=== PATIENT | female | born 1940 | race Asian ===

== ENCOUNTER → 2016-12-05 | Outpatient (CLI) | payer MEDICARE ==
[~2016-12-05] MED LIST: ASPIR-LOW81 MG PO; ASPIRIN E.C. 8181 MG PO; CALTRATE-600 W600 MG PO; EFFEXOR 75M75 MG/TAB PO; FORTAMET500 MG PO; GLYBURIDE MICRON3 MG PO; HCTZ 25MG25 MG PO; LEVOTHYROXINE PO; LEXAPRO 10MG10 MG PO; LISINOPRIL20 MG PO; NORVASC2.5 MG PO; OMEPRAZOLE20 M2 PO; PRILOSEC PO; VENLAFAXINE75 MG PO
== END ==
LOC: MC.RAD 15:46
DX: Z12.31 Encounter for screening mammogram for malignant neoplasm of breast (principal)

== ENCOUNTER 2017-05-29 08:46 | Day surgery (SDC) | payer MEDICARE ==
[~2017-05-29] VITALS: Ht 154.9 cm; Wt 80.2 kg
[~2017-05-29 08:46] MED LIST changes: +EFFEXOR-XR150 MG PO; +NORVASC 5MG5 MG/TAB PO; -NORVASC2.5 MG PO; -VENLAFAXINE75 MG PO
[2017-05-29] MEDS ORDERED: GLUCOTROL XL2.5 MG PO (09:20)
[2017-05-29] MEDS ORDERED: LIPITOR 10MG10 MG PO (09:20)
[2017-05-29] MEDS ORDERED: TAPAZOLE5 MG PO (09:21)
[2017-05-29] MEDS ORDERED: COZAAR 50MG50 MG/TAB PO (09:22)
[2017-05-29] MEDS ORDERED: JANUVIA25 MG PO (09:23)
[2017-05-29] MEDS ORDERED: VITAMIN D32000 I1 PO (09:23)
[2017-05-29] MEDS ORDERED: GLUCOSAMINE 1000 PO (09:24)
[2017-05-29] MEDS ORDERED: MAGNESIUM500 MG PO (09:25)
[2017-05-29] MEDS ORDERED: MASON NATURAL1200 MG PO (09:26)
[2017-05-29] MEDS ORDERED: FLAX OIL1000 MG PO (09:26)
[2017-05-29] MEDS ORDERED: CALCIUM 600-D 61 TAB PO (09:28)
[2017-05-29 09:52] VITALS: BP 115/71; PULSE 64; TEMP 98
[2017-05-29 11:30] VITALS: BP 118/72; PULSE 75; TEMP 97.7
[2017-05-29 11:45] VITALS: BP 100/61; PULSE 62
[2017-05-29 12:00] VITALS: BP 99/57; PULSE 68
== END 2017-05-29 12:35 | disposition home or self-care (01) ==
LOC: SDCO 08:46
DX: K31.7 Polyp of stomach and duodenum (principal); K30 Functional dyspepsia; K22.2 Esophageal obstruction; K44.9 Diaphragmatic hernia without obstruction or gangrene; K31.84 Gastroparesis; K29.30 Chronic superficial gastritis without bleeding; I10 Essential (primary) hypertension; E03.9 Hypothyroidism, unspecified; Z90.710 Acquired absence of both cervix and uterus; Z79.84 Long term (current) use of oral hypoglycemic drugs
CPT/HCPCS: OP; C1726; J2250; J3010; J7030

== ENCOUNTER 2017-06-04 15:45 | Outpatient (RCR) | payer MEDICARE ==
[~2017-06-04 15:45] MED LIST changes: +CALCIUM 600-D 61 TAB PO; +COZAAR 50MG50 MG/TAB PO; +FLAX OIL1000 MG PO; +GLUCOSAMINE 1000 PO; +GLUCOTROL XL2.5 MG PO; +JANUVIA25 MG PO; +LIPITOR 10MG10 MG PO; +MAGNESIUM500 MG PO; +MASON NATURAL1200 MG PO; +TAPAZOLE5 MG PO; +VITAMIN D32000 I1 PO
== END 2017-06-14 12:40 ==
LOC: WSOT 15:45
DX: M18.0 Bilateral primary osteoarthritis of first carpometacarpal joints (principal); M19.041 Primary osteoarthritis, right hand; M19.042 Primary osteoarthritis, left hand
CPT/HCPCS: G8987-GO; G8988-GO

== ENCOUNTER → 2017-12-28 | Outpatient (CLI) | payer MEDICARE | LOC: MC.RAD 14:27 | DX: Z12.31 Encounter for screening mammogram for malignant neoplasm of breast (principal) ==

== ENCOUNTER → 2019-03-05 | Outpatient (CLI) | payer MEDICARE | LOC: MC.RAD 08:11 | DX: Z12.31 Encounter for screening mammogram for malignant neoplasm of breast (principal) ==

== ENCOUNTER → 2019-03-10 | Outpatient (CLI) | payer MEDICARE | LOC: MC.RAD 12:46 | DX: Z12.31 Encounter for screening mammogram for malignant neoplasm of breast (principal) | CPT/HCPCS: G0279 ==

== ENCOUNTER 2021-08-12 09:32 | Emergency (ER) | payer MEDICARE ==
[~2021-08-12] VITALS: Ht 154.9 cm; Wt 84.1 kg
[2021-08-12 09:44] VITALS: TEMP 98.4
[2021-08-12] MEDS ORDERED: ATARAX50 MG PO (11:46)
[2021-08-12] MEDS ORDERED: PREDNISONE20 MG PO (11:46)
[2021-08-12 11:55] VITALS: BP 116/74; PULSE 78
== END 2021-08-12 11:55 | disposition home or self-care (01) ==
LOC: COL.ER 09:32
DX: T78.40XA Allergy, unspecified, initial encounter (principal); E11.9 Type 2 diabetes mellitus without complications; I10 Essential (primary) hypertension; E78.5 Hyperlipidemia, unspecified; K21.9 Gastro-esophageal reflux disease without esophagitis; E89.0 Postprocedural hypothyroidism; Z79.899 Other long term (current) drug therapy; Z79.84 Long term (current) use of oral hypoglycemic drugs
CPT/HCPCS: J1100; J1200

== ENCOUNTER 2022-01-23 11:19 | Emergency (ER) | payer MEDICARE ==
[~2022-01-23] VITALS: Ht 153 cm; Wt 70.0 kg
[~2022-01-23 11:19] MED LIST changes: +ATARAX50 MG PO; +PREDNISONE20 MG PO
[2022-01-23 11:28] VITALS: TEMP 98.6
[2022-01-23 11:51] LABS: BASO # 0.1 K/mm3 (0.0-0.2); BASO % 0.9 % (0.0-2.0); EOS # 0.5 K/mm3 (0.0-0.7); EOS % 7.1 % (0.0-4.0); GRAN # 4.6 K/mm3 (1.4-6.5); GRAN % 65.5 % (42.2-75.2); HEMATOCRIT 41.1 % (37.0-47.0); HEMOGLOBIN 13.1 g/dl (12.5-16.0); LYMPH # 1.3 K/mm3 (1.2-3.4); LYMPH % 17.8 % (20.0-51.0); MEAN CELL VOLUME 97 fl (80.0-100.0); MEAN CORPUSCULAR HEMOGLOBIN 31 pg (27-31); MEAN CORPUSCULAR HGB CONC 32 g/dl (33.0-37.0); MEAN PLATELET VOLUME 9.9 fl (7.4-10.4); MONO # 0.6 K/mm3 (0.1-0.6); MONO % 8.3 % (1.7-9.3); PLATELET COUNT 255 K/mm3 (130-400); RED BLOOD COUNT 4.22 M/mm3 (4.10-5.30); REDCELL DISTRIBUTION WIDTH-CV 13.2 % (11.5-14.5)
[2022-01-23 12:17] LABS: ALBUMIN 3.1 gm/dL (3.4-4.8); BILIRUBIN,TOTAL 0.4 mg/dL (0.2-1.2); CALCIUM 8.7 mg/dL (8.4-10.2); CREATININE, serum 1.63 mg/dL (0.57-1.11); POTASSIUM 3.9 mmol/L (3.5-4.5); TOTAL PROTEIN 6.9 gm/dL (6.2-8.1)
[2022-01-23 12:38] LABS: TROPONIN-I 0.022 ng/mL (0.00-0.033); TSH w REFLEX 0.374 uIU/mL (0.350-4.940)
[2022-01-23 15:54] VITALS: BP 112/70; PULSE 85
== END 2022-01-23 15:55 | disposition home or self-care (01) ==
LOC: COL.ER 11:19
PROVIDERS: Emergency Medicine
DX: R00.0 Tachycardia, unspecified (principal); R00.2 Palpitations; E11.9 Type 2 diabetes mellitus without complications; Z01.31 Encounter for examination of blood pressure with abnormal findings; Z20.822 Contact with and (suspected) exposure to COVID-19; Z91.040 Latex allergy status; Z28.310 Unvaccinated for COVID-19; Z79.899 Other long term (current) drug therapy
CPT/HCPCS: J7120

== ENCOUNTER 2022-02-01 14:31 | Outpatient (CLI) | payer MEDICARE ==
[~2022-02-01] VITALS: Ht 152.4 cm; Wt 74.5 kg
[~2022-02-01 14:31] MED LIST changes: +MAGNESIUM250 M1 PO; -MAGNESIUM500 MG PO; -OMEPRAZOLE20 M2 PO; +PRILOSEC 20MG20 MG PO
[2022-02-01] MEDS ORDERED: JARDIANCE25 PO (15:51)
[2022-02-01] MEDS ORDERED: D3-5050000 IU PO (15:52)
[2022-02-01] MEDS ORDERED: VICTOZA6 MG/ML SQ (15:52)
[2022-02-01] MEDS ORDERED: NATURE'S BLEND100 M2 PO (15:53)
[2022-02-01] MEDS ORDERED: B-121000 MCG PO (15:53)
[2022-02-01] MEDS ORDERED: PRILOSEC 20MG20 MG PO (15:54)
[2022-02-01] MEDS ORDERED: MASON NATURAL500 MG PO (15:54)
[2022-02-01 15:55] VITALS: BP 125/75; PULSE 69; TEMP 98.5
[2022-02-01] MEDS ORDERED: CEPHALEXIN500 M1 PO (16:26)
[2022-02-01 16:43] VITALS: BP 128/93; PULSE 47
--- NOTE | 2022-02-01 16:57 | NUR ---
Discharge instructions given to pt.Pt verbalizes understanding.Pt escorted out by this nurse.
== END 2022-02-01 16:58 ==
LOC: COL.CAR 14:31
DX: I47.1 Supraventricular tachycardia (principal); I10 Essential (primary) hypertension; I95.9 Hypotension, unspecified; Z79.899 Other long term (current) drug therapy
CPT/HCPCS: 27886; C1764

== ENCOUNTER 2022-10-09 13:13 | Outpatient (RCR) | payer MEDICARE ==
[~2022-10-09 13:13] MED LIST changes: +B-121000 MCG PO; +CEPHALEXIN500 M1 PO; +D3-5050000 IU PO; +JARDIANCE25 PO; +MASON NATURAL500 MG PO; +NATURE'S BLEND100 M2 PO; +VICTOZA6 MG/ML SQ
== END 2022-10-10 ==
LOC: WSPT
DX: R29.6 Repeated falls (principal); R26.81 Unsteadiness on feet

== ENCOUNTER 2022-11-08 15:00 | Outpatient (RCR) | payer MEDICARE | END 2022-11-10 | disposition home or self-care (01) | LOC: WSPT | DX: R29.6 Repeated falls (principal); R26.81 Unsteadiness on feet ==

== ENCOUNTER 2022-11-15 14:15 | Outpatient (RCR) | payer MEDICARE | END 2022-12-10 | disposition home or self-care (01) | LOC: WSPT | DX: R29.6 Repeated falls (principal); R26.81 Unsteadiness on feet ==

== ENCOUNTER 2024-02-22 14:15 | Day surgery (SDC) | payer MEDICARE ==
[~2024-02-22] VITALS: Ht 154.9 cm; Wt 75.7 kg
[~2024-02-22 14:15] MED LIST changes: +NS 1,000 ML IV SCH
--- NOTE | 2024-02-22 14:27 | NUR ---
PATIENT ADMITTED TO ROOM 7 PER WHEELCHAIR ACCOMPANIED BY DAUGHTER. ASSISTED ONTO CART WITH ONE PERSON ASSIST. PATIENT SPEAKS LIMITED UKRAINIAN AND DAUGHTER TRANSLATES. DAUGHTER IS PHYSICIAN AND DOES WELL WITH TRANSLATING.
[2024-02-22] MEDS ORDERED: NS 10 ML IV ONE (15:27)
[2024-02-22] MEDS ORDERED: Lidocaine PF 2% (20 MG/ML) 5 ML VIAL ONE (15:27)
[2024-02-22 15:31] VITALS: BP 126/87; PULSE 124; TEMP 97.6
[2024-02-22] MEDS ORDERED: BETIMOL 0.5% OPH5 ML OU (16:39)
[2024-02-22] MEDS ORDERED: MULTAQ400 MG PO (16:39)
[2024-02-22] MEDS ORDERED: CARAFATE 1GM1 G PO (16:40)
[2024-02-22] MEDS ORDERED: ELIQUIS 2.5 PO (16:40)
[2024-02-22] MEDS ORDERED: GLUCOTROL 5M5 MG/TAB PO (16:41)
[2024-02-22] MEDS ORDERED: ZYRTEC 10MG10 MG PO (16:42)
[2024-02-22] MEDS ORDERED: Lidocaine 2% (20 MG/ML) 20 ML UROJET UR ONE (16:54)
[2024-02-22] MEDS ORDERED: Naloxone 0.4 MG/ML VIAL IV PRN (17:15)
[2024-02-22] MEDS ORDERED: Acetaminophen 325 MG TAB PO PRN (17:15)
[2024-02-22] MEDS ORDERED: Ondansetron 4 MG/2 ML VIAL IV PRN (17:15)
[2024-02-22] MEDS ORDERED: Hyoscyamine 0.125 MG Sublingual TAB SL PRN (17:15)
[2024-02-22 17:20] VITALS: BP 100/71; PULSE 95; TEMP 96.4
[2024-02-22] MEDS ORDERED: Albuterol 90 MCG/PUFF 8 GM MDI IH ONE (17:44)
--- NOTE | 2024-02-22 18:34 | NUR ---
1720- PT RETURNS FROM PROCEDURE VIA CART TO [facility]. MONITORS ON AND ALARMS SET. CALL LIGHT WITHIN REACH. REPORT RECEIVED FROM DUGLAS LAUREANO. PT ALERT AND ORIENTED. PT REQUESTS WATER. PT DENIES ANY PAIN OR NAUSEA. 1745- PT TAKING DRINK WELL. NO COMPLICATIONS NOTED. PT AMBULATES TO THE BATHROOM AND BACK WELL. 1810- dISCHARGE INSTRUCTIONS GIVEN TO PT. ALL QUESTIONS ANSWERED. 1830- PT TRANSFERRED OUT OF THE HOSPITAL VIA WHEELCHAIR TO PERSONAL VEHICLE DRIVEN BY DAUGHTER.
== END 2024-02-22 18:30 | disposition home or self-care (01) ==
LOC: SDCO 14:15
DX: N39.46 Mixed incontinence (principal); R35.0 Frequency of micturition; R35.1 Nocturia; N18.30 Chronic kidney disease, stage 3 unspecified; K21.9 Gastro-esophageal reflux disease without esophagitis; I12.9 Hypertensive chronic kidney disease with stage 1 through stage 4 chronic kidney disease, or unspecified chronic kidney disease; E11.22 Type 2 diabetes mellitus with diabetic chronic kidney disease; Z79.899 Other long term (current) drug therapy; Z79.01 Long term (current) use of anticoagulants; Z79.84 Long term (current) use of oral hypoglycemic drugs
CPT/HCPCS: A4215; J0585; J0690; J2704; J7030

== ENCOUNTER 2024-04-11 18:52 | Emergency (ER) | payer MEDICARE ==
[~2024-04-11] VITALS: Ht 157.5 cm; Wt 66.0 kg
[~2024-04-11 18:52] MED LIST changes: +BETIMOL 0.5% OPH5 ML OU; +CARAFATE 1GM1 G PO; +ELIQUIS 2.5 PO; +GLUCOTROL 5M5 MG/TAB PO; +MULTAQ400 MG PO; -NS 1,000 ML IV SCH; +ZYRTEC 10MG10 MG PO
[2024-04-11 18:54] VITALS: TEMP 97.6
[2024-04-11 20:52] LABS: BASO # 0.1 K/mm3 (0.0-0.2); BASO % 0.6 % (0.0-2.0); EOS # 0.1 K/mm3 (0.0-0.7); EOS % 1.4 % (0.0-4.0); GRAN # 6.2 K/mm3 (1.4-6.5); GRAN % 71.9 % (42.2-75.2); HEMATOCRIT 38.3 % (37.0-47.0); HEMOGLOBIN 12.6 g/dl (12.5-16.0); LYMPH # 1.3 K/mm3 (1.2-3.4); LYMPH % 15.3 % (20.0-51.0); MEAN CELL VOLUME 95 fl (80.0-100.0); MEAN CORPUSCULAR HEMOGLOBIN 31 pg (27-31); MEAN CORPUSCULAR HGB CONC 33 g/dl (33.0-37.0); MEAN PLATELET VOLUME 10.2 fl (7.4-10.4); MONO # 0.8 K/mm3 (0.1-0.6); MONO % 9.4 % (1.7-9.3); PLATELET COUNT 245 K/mm3 (130-400); RED BLOOD COUNT 4.03 M/mm3 (4.10-5.30); REDCELL DISTRIBUTION WIDTH-CV 13.5 % (11.5-14.5)
[2024-04-11 21:04] LABS: ALANINE AMINOTRANSFERASE 13 U/L (0-55); ALBUMIN 3.4 g/dL (3.4-4.8); ALKALINE PHOSPHATASE 104 U/L (40-150); ANION GAP 14 mmol/L (7-16); AST,SGOT 13 U/L (5-34); BILIRUBIN,TOTAL 0.4 mg/dL (0.2-1.2); BLOOD UREA NITROGEN 57 mg/dL (10-20); CALCIUM 9.2 mg/dL (8.4-10.2); CHLORIDE 110 mEq/L (98-107); CREATININE, serum 1.68 mg/dL (0.57-1.11); GLUCOSE 137 mg/dL (70-99); POTASSIUM 3.6 mEq/L (3.5-4.5); SODIUM 141 mEq/L (136-145); TOTAL PROTEIN 6.9 g/dl (6.2-8.1)
[2024-04-11 21:16] LABS: TROPONIN-I < 0.010 ng/mL (0.00-0.033)
[2024-04-11] MEDS ORDERED: NS 500 ML IV ONE (21:30)
[2024-04-11 22:27] VITALS: BP 125/92; PULSE 98
== END 2024-04-11 22:36 | disposition home or self-care (01) ==
LOC: COL.ER 18:52
PROVIDERS: Emergency Medicine
DX: M25.511 Pain in right shoulder (principal); M25.551 Pain in right hip; M54.2 Cervicalgia; E04.1 Nontoxic single thyroid nodule; I48.91 Unspecified atrial fibrillation; Z79.01 Long term (current) use of anticoagulants; Z91.040 Latex allergy status; W01.0XXA Fall on same level from slipping, tripping and stumbling without subsequent striking against object, initial encounter
CPT/HCPCS: J7040